=== PATIENT | male | born 2000 | race Hispanic/Latino ===

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

== ENCOUNTER 2021-11-12 00:58 | Emergency (ER) | payer MEDICAID, OTHER ==
[~2021-11-12] VITALS: Ht 180.3 cm; Wt 117.9 kg
[2021-11-12] MEDS ORDERED: CEPH500B PO (03:18)
[2021-11-12 03:31] VITALS: BP 148/87
== END 2021-11-12 03:32 | disposition home or self-care (01) ==
LOC: EDH 00:58
DX: L02.213 Cutaneous abscess of chest wall (principal); L03.313 Cellulitis of chest wall

== ENCOUNTER 2024-01-31 10:37 | Emergency (ER) | payer OTHER ==
[~2024-01-31] VITALS: Ht 175.3 cm; Wt 117.9 kg
[~2024-01-31 10:37] MED LIST: CEPH500B PO
[2024-01-31 10:48] VITALS: BP 157/90; PULSE 86; RESP 18
[2024-01-31] MEDS: HYDROCODONE/ACETAMINOPHEN 10/325 MG TAB PO ONE (11:34)
[2024-01-31] MEDS ORDERED: MUPI22OI2 TP (11:42)
[2024-01-31] MEDS ORDERED: SULF1TAB42 PO (11:42)
[2024-01-31] MEDS ORDERED: ACYC-138 PO (11:42)
[2024-01-31] MEDS ORDERED: LEVO5TAB29 PO (11:46)
== END 2024-01-31 11:53 | disposition home or self-care (01) ==
LOC: EDH 10:37
DX: R21 Rash and other nonspecific skin eruption (principal)

== ENCOUNTER 2024-08-19 23:51 | Emergency (ER) | payer SELFPAY ==
[~2024-08-19] VITALS: Ht 175.3 cm; Wt 117.9 kg
[~2024-08-19 23:51] MED LIST changes: +ACYC-138 PO; -CEPH500B PO; +LEVO5TAB29 PO; +MUPI22OI2 TP; +SULF1TAB42 PO
[2024-08-20 01:56] VITALS: TEMP 98.1
[2024-08-20] MEDS ORDERED: CEPH500B PO (02:35)
[2024-08-20] MEDS: ketOROlac 30MG VIAL (30MG/ML) IM ONE (03:23)
[2024-08-20] MEDS: cefTRIAXone 1G VIAL IM ONE (03:24)
[2024-08-20 03:32] VITALS: BP 138/64; PULSE 81; RESP 20; O2SAT 99
== END 2024-08-20 03:37 | disposition home or self-care (01) ==
LOC: EDH 23:51
DX: S60.052A Contusion of left little finger without damage to nail, initial encounter (principal); Z79.624 Long term (current) use of inhibitors of nucleotide synthesis; X58.XXXA Exposure to other specified factors, initial encounter; Y93.89 Activity, other specified; Y92.89 Other specified places as the place of occurrence of the external cause; Y99.8 Other external cause status
CPT/HCPCS: 99284; 73140; 96372 ×2; J0696 ×2; J1885

== ENCOUNTER 2025-02-27 14:19 | Emergency (ER) | payer SELFPAY ==
[~2025-02-27] VITALS: Ht 175.3 cm; Wt 113.4 kg
[~2025-02-27 14:19] MED LIST changes: +CEPH500B PO
--- NOTE | 2025-02-27 14:28 | ERN ---
ED Note History of Present Illness Stated Complaint: LOWER BACK PAIN Chief Complaint: Low Back Pain/Injury Time Seen by MD: 14:21 Dictation: PATIENT IS A 24-YEAR-OLD MALE COMING IN WITH RIGHT LATERAL LUMBAR PAIN THAT DOES NOT RADIATE, NO CHANGE IN URINATION. HE HAS HAD IT FOR TWO DAYS. STATES HE IS A HOU DOES A LOT OF HEAVY LIFTING AND NOTICED THE PAIN TWO DAYS AGO. NO FEVER NO CHILLS NO NAUSEA VOMITING. STATES HE DOES NOT HAVE A PRIMARY CARE DOCTOR. STATES HIS GRANDMOTHER GAVE HIM SOME ANTIBIOTICS FROM [facility] THAT HE TOOK FOR TWO DAYS. Allergies: Coded Allergies: No Known Drug Allergies (Unverified Allergy, Unknown, 11/12/21) Home Meds Active Scripts Ibuprofen (Ibuprofen 800 mg Tab) 800 Mg Tab, 800 MG PO Q8H PRN for fever or pain, #30 TAB 0 Refills Prov:NURY YEUNG NP 02/27/25 Cyclobenzaprine HCl (Cyclobenzaprine HCl) 10 Mg Tablet, 1 TAB PO TID for muscle spasms for 10 Days, #30 TAB 0 Refills Prov:NURY YEUNG NP 02/27/25 Cephalexin Monohydrate (Keflex) 500 Mg Cap, 500 MG PO BID for 5 Days, #10 CAP Prov:MARCELA KIRKLAND 08/20/24 Levocetirizine Dihydrochloride (Xyzal) 5 Mg Tablet, 5 MG PO DAILY for 30 Days, #30 TAB Prov:JO HICKMAN 01/31/24 Mupirocin (Mupirocin Ointment) 2 % Oint, 1 APPL TP BID for 14 Days, #30 GM Prov:JO HICKMAN 01/31/24 Sulfamethoxazole/Trimethoprim (Bactrim Ds Tablet) 800 Mg-160 Mg Tablet, 1 TAB PO BID for 10 Days, #14 TAB 0 Refills Prov:JO HICKMAN 01/31/24 Acyclovir (Acyclovir) 800 Mg Tablet, 800 MG PO TID for 12 Days, #36 TAB Prov:JO HICKMAN 01/31/24 Past Medical History Past Medical History: No Pertinent History Surgical History: None RN Note Reviewed/Agreed w/PFSH: Yes Review of System Dictation CONSTITUTIONAL: NEGATIVE EXCEPT FOR HPI HEAD/FACE: NEGATIVE EXCEPT FOR HPI EENT: NEGATIVE EXCEPT FOR HPI RESPIRATORY: NEGATIVE EXCEPT FOR HPI GASTROINTESTINAL/ABDOMINAL: NEGATIVE EXCEPT FOR HPI GENITOURINARY: NEGATIVE EXCEPT FOR HPI MUSCULOSKELETAL: NEGATIVE EXCEPT FOR HPI RIGHT LOWER BACK PAIN INTEGUMENTARY: NEGATIVE EXCEPT FOR HPI NEUROLOGICAL/PSYCH: NEGATIVE EXCEPT FOR HPI HEMATOLOGIC/LYMPHATIC: NEGATIVE EXCEPT FOR HPI ALL SYSTEMS NEGATIVE, EXCEPT NOTED ABOVE. 13 POINT REVIEW OF SYSTEMS ASSESSED AND ALL NEGATIVE EXCEPT FOR ABOVE. Initial Vital Sign VS Vital Signs Date Time Temp Pulse Resp B/P (MAP) Pulse Ox O2 Delivery O2 Flow Rate FiO2 02/27/25 14:22 97.9 73 14 159/103 100 Room Air 0 02/27/25 15:43 21 Physical Exam Dictation VITAL SIGNS REVIEWED GENERAL APPEARANCE: ALERT, ORIENTED X 3, MILD ACUTE DISTRESS, WELL DEVELOPED, NOURISHED. OBESE HEAD AND FACE: NON-TRAUMATIC. EYES: PERRL, PINK CONJUNCTIVAS, EYELID NO TRAUMA, ANTERIOR CHAMBER WITH ARCUS SENILIS. EARS: PINNAS INTACT AND NO SIGNS OF TRAUMA OR ERYTHEMA EAR CANALS CLEAR AND NO DISCHARGE TM NO ERYTHEMA NOSE: NO DISCHARGE, NO BLEEDING. OROPHARYNX: MOUTH NORMAL, TONGUE PINK, PHARYNX CLEAR,NO ERYTHEMA, TONSILS NO EXUDATES, NO ABSCESSES NOTED, MUCOUS MEMBRANE MOIST NECK: SUPPLE, NON-TENDER, NO THYROMEGALY, NO MASSES, NO JVD, NO BRUITS BREAST:DEFERRED CHEST:NO TENDERNESS, NO CREPITUS, NO PARADOXICAL MOVEMENT, NO RETRACTIONS LUNGS:CLEAR, WELL-VENTILATED, SYMMETRIC, NO RALES, NO WHEEZING, NO RHONCHI, NO STRIDOR, GOOD BREATH SOUNDS BILATERALLY HEART: REGULAR RATE, REGULAR RHYTHM, NO MURMUR, NO GALLOPS VASCULAR: NO PERIPHERAL EDEMA, ABDOMEN: SOFT, POSITIVE BOWEL SOUNDS, NONDISTENDED, NO GUARDING, NONTENDER, NO REBOUND, NO MASSES NO HEPATOMEGALY, NO SPLENOMEGALY, NO VARNER'S SIGN, NO HERNIAS. NEGATIVE CVAT BILATERALLY RECTAL: DEFERRED GENITAL: DEFERRED NEUROLOGICAL: NORMAL SPEECH, MOTOR FUNCTION INTACT, SENSORY FUNCTION INTACT MUSCULOSKELETAL: NECK NONTENDER, FULL RANGE OF MOTION, RIGHT LATERAL LUMBAR TENDERNESS., FULL RANGE OF MOTION, NO MIDLINE SPINE PAIN EXTREMITIES: NONTENDER, FULL RANGE OF MOTION SKIN: COLOR PINK, DRY, NO TURGOR, NO RASH, NO LACERATIONS, NO ABRASIONS, NO CONTUSIONS. LYMPHATIC: DEFERRED Results (Laboratory/Radiology) Laboratory/Radiology Lumbar x-ray negative. Labs Reviewed?: Yes ED Course ED Course Orders Procedure Category Date Status Time Lumbar Spine 2-3vws RAD 02/27/25 Resulted 14:26 Ibuprofen 800 Mg Tab PHA 02/27/25 Complete (Motrin) 14:30 Cyclobenzaprine Hcl PHA 02/27/25 Complete (Cyclobenzaprine Hcl 14:30 Current Medications Medications (Trade) Dose Ordered Sig/Nabila Route PRN Reason Start Time Stop Time Status Last Admin Dose Admin Cyclobenzaprine HCl (Cyclobenzaprine HCl) 10 mg ONCE ONCE PO 02/27/25 14:30 02/27/25 14:32 DC 02/27/25 15:34 Ibuprofen (moTRIN) 800 mg ONCE ONCE PO 02/27/25 14:30 02/27/25 14:32 DC 02/27/25 15:34 Vital Signs Date Time Temp Pulse Resp B/P (MAP) Pulse Ox O2 Delivery O2 Flow Rate FiO2 02/27/25 15:43 97.9 70 16 137/92 99 Room Air* 0 21 02/27/25 14:22 97.9 73 14 159/103 100 Room Air 0 1525/lumbar x-ray negative Patient pain being relieved with Motrin and Flexeril. Discharged home with a acute lumbar strain Given a list of local doctors Provided ibuprofen and Flexeril Medical Decision Making MDM Medical decision-making based on empiric treatment for lumbar pain and Lumbar film. Lumbar x-ray negative Discharged home with ibuprofen and Flexeril Neurovascular CMS intact to all extremities DX & DISP Disposition: Discharge Departure Impression: Primary Impression: Acute lumbar myofascial strain Condition: Stable Scripts Ibuprofen (Ibuprofen 800 mg Tab) 800 Mg Tab 800 MG PO Q8H PRN for fever or pain, #30 TAB 0 Refills Prov: NURY YEUNG [employer] 02/27/25 Cyclobenzaprine HCl (Cyclobenzaprine HCl) 10 Mg Tablet 1 TAB PO TID for muscle spasms for 10 Days, #30 TAB 0 Refills Prov: NURY YEUNG [employer] 02/27/25 Additional Instructions: Follow-up with primary care provider in 1 to 2 days. Take medications as directed here in the emergency room. Okay to continue home medications unless otherwise discussed during your visit in the emergency room today. Return to your nearest emergency room if symptoms worsen or if there is no improvement. Call 911 if you need immediate assistance. Take Tylenol or Motrin [id number] as needed and if no contraindications are present. Increase oral hydration. A wound culture or urine culture was ordered here in the emergency room department please follow-up with primary care provider and advise them to get repeat ports from our facility. If you had any Juan Alberto wrap/splints that were applied here, please do not remove them until you see your primary care or specialty. Take ibuprofen and Flexeril every 8 hours with food for the next three days. No lifting greater than 10 lb until cleared by one of the doctors on the list provided you in the next 2-3 days. Increase your water intake. Stop marijuana use Referrals: SELF,REFERRAL (PCP) Time of Disposition: 15:28 I have reviewed the case, and I agree with, Diagnosis and Plan NURY YEUNG NP Feb 27, 2025 14:28 TWILA CAPUTO DO Feb 27, 2025 17:15
[2025-02-27] MEDS ORDERED: CYCL-309 PO (15:29)
[2025-02-27] MEDS ORDERED: IBUP-2077 PO (15:29)
[2025-02-27] MEDS: ibuPROFEN 800 MG TAB PO ONE (15:34)
[2025-02-27] MEDS: CYCLOBENZAPRINE HCL 10 MG TABLET PO ONE (15:34)
[2025-02-27 15:43] VITALS: BP 137/92; PULSE 70; RESP 16; TEMP 97.8; O2SAT 99
--- NOTE | 2025-02-27 16:22 | HMCIMG ---
LUMBAR SPINE 2-3VWS HISTORY: LATERAL LUMBAR PAIN TECHNIQUE: LUMBAR SPINE 2-3VWS FINDINGS AND IMPRESSION: No evidence of compression fracture or dislocation. Nonspecific straightening of curvature likely positional. Soft tissues are grossly within normal limits.
== END 2025-02-27 15:46 | disposition home or self-care (01) ==
LOC: EDH 14:19
DX: S39.012A Strain of muscle, fascia and tendon of lower back, initial encounter (principal); Z79.624 Long term (current) use of inhibitors of nucleotide synthesis; Z79.899 Other long term (current) drug therapy; X50.0XXA Overexertion from strenuous movement or load, initial encounter; Y93.89 Activity, other specified; Y92.89 Other specified places as the place of occurrence of the external cause; Y99.8 Other external cause status
CPT/HCPCS: 72100; 99283